=== PATIENT | male | born 1990 | race African-American/Black ===

== ENCOUNTER 2016-10-11 12:02 | Emergency (ER) | payer SELFPAY ==
[~2016-10-11] VITALS: Ht 177.8 cm; Wt 68.0 kg
[~2016-10-11 12:02] MED LIST: CIPR500T2 PO; Z.0.NO CURRENT MEDS
[2016-10-11 12:03] VITALS: BP 118/67; PULSE 106; RESP 14; TEMP 98.4; O2SAT 98
--- NOTE | 2016-10-11 13:36 | PD ---
HPI Chief Complaint: Skin Problem Time Seen by Provider: 13:36 Travel History International Travel<30 days: No Contact w/Intl Traveler<30days: No Traveled to known affect area: No History of Present Illness HPI 26-year-old male presents to the ED for four-day history of "rising" on the right posterior upper leg. Patient has been treating with warm showers, states that the area opened and drained yesterday. Complains of 6/10 pain, worse with palpation. Denies fever, chills, limitations to range of motion of the limb. Denies chronic health problems, takes no daily medications. NKDA. PFSH Social History Alcohol Use: No Tobacco Use: No Substance Use: No Allergies-Medications (Allergen,Severity, Reaction): Coded Allergies: No Known Allergies (Verified , 10/11/16) Reported Meds & Prescriptions Reported Meds & Active Scripts Active Ibuprofen 800 Mg Tab 800 Mg PO Q8H PRN Keflex (Cephalexin) 500 Mg Cap 500 Mg PO Q6H 10 Days Bactrim DS (Sulfamethoxazole-Trimethoprim) 800-160 Mg Tab 1 Tab PO BID Review of Systems Except as stated in HPI: all other systems reviewed are Neg Physical Exam Narrative GENERAL: Well-nourished, well-developed patient. SKIN: Warm and dry. SKIN: There is an indurated area in the right posterior lateral thigh which measures about 6 cm in diameter. It is fluctuant with a central punctum and drainage. There is a zone of inflammation around it but no lymphangitis. HEAD: Normocephalic. EYES: No scleral icterus. No injection or drainage. NECK: Supple, trachea midline. No JVD or lymphadenopathy. CARDIOVASCULAR: Regular rate and rhythm without murmurs, gallops, or rubs. RESPIRATORY: Breath sounds equal bilaterally. No accessory muscle use. GASTROINTESTINAL: Abdomen soft, non-tender, nondistended. MUSCULOSKELETAL: No cyanosis, or edema. BACK: Nontender without obvious deformity. No CVA tenderness. Data Data Last Documented VS Vital Signs Date Time Temp Pulse Resp B/P Pulse Ox O2 Delivery O2 Flow Rate FiO2 10/11/16 12:03 98.4 106 14 118/67 98 Orders Wound Culture And Gram Stain (10/11/16 13:40) MDM Medical Decision Making Medical Screen Exam Complete: Yes Emergency Medical Condition: Yes Differential Diagnosis Furuncle versus carbuncle versus abscess versus cellulitis versus other Narrative Course 26-year-old male presents to the ED for four-day history of 6/10 painful "rising " on the right posterior upper leg. Patient has been treating with warm showers , states that the area opened and drained yesterday. Denies fever, chills, limitations to range of motion of the limb. Vitals reviewed. Physical exam consistent with abscess. 6 ammeter area of warm induration, central punctum that is draining purulent fluid. Wound culture obtained and pending. Provided the patient with prescriptions for Bactrim, Keflex, ibuprofen. Encouraged continued symptomatic treatment, return for worsening of symptoms. Patient is amenable to plan of care. He is stable and discharged home. Diagnosis Primary Impression: Abscess of right lower extremity Referrals: Primary Care Physician Patient Instructions: Abscess (ED), General Instructions Additional Instructions: Rest, hydrate. Continue to use warm, moist compresses to promote drainage. Take all antibiotics as prescribed, even if symptoms resolve. Take ibuprofen as needed for pain. Follow-up with the primary care provider this week. Return to the ED for worsening of symptoms or any urgent or emergent medical condition. Med/Other Pt SpecificInfo: Prescription(s) given Scripts Ibuprofen 800 Mg [id number] Mg PO Q8H PRN (Pain/Inflammation) #15 TAB Ref 0 Prov:Cricket Tao MD 10/11/16 Cephalexin (Keflex)500 Mg [id number] Mg PO Q6H 10 Days Ref 0 Prov:Cricket Tao MD 10/11/16 Sulfamethoxazole-Trimethoprim (Bactrim DS)800-160 Mg Tab1 Tab PO BID #14 TAB Ref 0 Prov:Cricket Tao MD 10/11/16 Disposition: 01 DISCHARGE HOME Condition: Stable Anaya Mcmahan Oct 11, 2016 13:36
[2016-10-11] MEDS ORDERED: CEPH-460 PO (14:14)
[2016-10-11] MEDS ORDERED: IBUP800T23 PO (14:14)
[2016-10-11] MEDS ORDERED: BACT800T5 PO (14:14)
== END 2016-10-11 14:44 | disposition home or self-care (01) ==
LOC: NED 12:02
DX: L02.415 Cutaneous abscess of right lower limb (principal); B95.62 Methicillin resistant Staphylococcus aureus infection as the cause of diseases classified elsewhere
CPT/HCPCS: 86403; 87070; 87186; 87205; 99283